=== PATIENT | male | born 1940 | race Caucasian/White ===

== ENCOUNTER → 2016-12-15 | Outpatient (CLI) | payer MEDICARE, OTHER | END | disposition home or self-care (01) | LOC: GMAB 14:01 | PROVIDERS: ATTEND Family Medicine | DX: C61 Malignant neoplasm of prostate (principal) ==

== ENCOUNTER → 2017-01-05 | Outpatient (CLI) | payer MEDICARE, OTHER | END | disposition home or self-care (01) | LOC: GMAB 10:24 | PROVIDERS: ATTEND Family Medicine | DX: Z12.5 Encounter for screening for malignant neoplasm of prostate (principal); I10 Essential (primary) hypertension | CPT/HCPCS: 84443; G0103 ==

== ENCOUNTER → 2017-04-13 | Outpatient (CLI) | payer MEDICARE, OTHER | LOC: GMAB 14:18 | PROVIDERS: ATTEND Family Medicine | DX: C61 Malignant neoplasm of prostate (principal) ==

== ENCOUNTER → 2017-10-05 | Outpatient (CLI) | payer MEDICARE, OTHER | END | disposition home or self-care (01) | LOC: GMAJ 17:15 | PROVIDERS: ATTEND Family Medicine | DX: C61 Malignant neoplasm of prostate (principal) ==

== ENCOUNTER → 2018-03-24 | Outpatient (CLI) | payer MEDICARE, OTHER | LOC: GMAB 10:42 | PROVIDERS: ATTEND Family Medicine | DX: C61 Malignant neoplasm of prostate (principal); I10 Essential (primary) hypertension ==

== ENCOUNTER → 2018-04-22 | Outpatient (CLI) | payer MEDICARE, OTHER | LOC: GMAE 10:19 | PROVIDERS: ATTEND Family Medicine | DX: D69.6 Thrombocytopenia, unspecified (principal) ==

== ENCOUNTER → 2019-04-11 | Outpatient (CLI) | payer MEDICARE, OTHER | LOC: GMAE 11:21 | PROVIDERS: ATTEND Family Medicine | DX: C61 Malignant neoplasm of prostate (principal); I10 Essential (primary) hypertension ==

== ENCOUNTER → 2019-05-20 | Outpatient (CLI) | payer MEDICARE, OTHER ==
--- NOTE | 2019-05-20 18:24 | CT ---
EXAM DESCRIPTION: Head CT with contrast CLINICAL HISTORY: SWELLING COMPARISON: None available TECHNIQUE: Postcontrast head CT was performed with routine protocol. Usual adult dose of nonionic iodinated IV contrast was administered intravenously. FINDINGS: Normal arteaga-white matter differentiation. Ventricles and sulci are normal for age. Postcontrast images show normal enhancement of intracranial vessels with normal arteaga-white matter differentiation. No high density hemorrhage, focal edema or shift of the midline. No sulcal effacement. Normal right orbital contents. 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 Basilar cisterns appear clear. Intact calvarium with no fracture or lytic lesion. Normal aeration of tympanic cavities and mastoid air cells. No fluid levels in the paranasal sinuses. Skull base appears intact. Symmetrical internal auditory canals. IMPRESSION: No acute intracranial pathologic process. This exam was performed according to our departmental dose-optimization program, which includes automated exposure control, adjustment of the mA and/or kV according to patient size and/or use of iterative reconstruction technique. Total DLP equals 967.47 mGycm. Electronically signed by: Manish Troy MD 05/20/2019 6:22 PM CDT
--- NOTE | 2019-05-23 11:30 | CT ---
EXAM DESCRIPTION: Soft Tissue Neck w/Contrast CLINICAL HISTORY: 79 years, Male, SWELLING COMPARISON: None. TECHNIQUE: CT of the neck is performed during IV administration of 75 mL of Optiray 320. MPR images are created and reviewed as well. There was suboptimal contrast bolus timing with majority of contrast likely within the delayed phase. This exam was performed according to our department optimization program which includes automated exposure control, adjustment of the mA and/or kv according to patient size and/or use of iterative reconstruction technique. FINDINGS: Partially visualized left eye prosthesis. No fluid or significant mucosal thickening in the visualized paranasal sinuses. The parotid glands, submandibular glands and thyroid gland are normal in appearance. Small bilateral intraparotid gland lymph nodes. The pharynx and larynx appear unremarkable. No focal mass or fluid collection is seen. Slight asymmetric increased prominence of the left premaxillary subcutaneous fat (when compared to the right). Scattered symmetric bilateral nonenlarged lymph nodes. No suspicious cervical lymphadenopathy. The lung apices are clear. Moderate multilevel cervical spine degenerative changes. No acute osseous abnormality. IMPRESSION: 1. Suboptimal contrast bolus timing. 2. Unremarkable CT neck soft tissue without suspicious mass, lymphadenopathy, or drainable fluid collection. Electronically signed by: Rafita Virgen DO 05/23/2019 11:29 AM CDT
== END ==
LOC: LAB.O 15:16
PROVIDERS: ATTEND Nurse Practitioner Family
DX: R22.0 Localized swelling, mass and lump, head (principal)

== ENCOUNTER 2019-10-02 08:53 | Emergency (ER) | payer MEDICARE, OTHER ==
[2019-10-02] MEDS ORDERED: methylPREDNISolone SODIUM SUC 125 MG/2 ML VIAL IM ONE (09:16)
[2019-10-02] MEDS ORDERED: KETOROLAC TROMETHAMINE INJ 30 MG/ML VIAL IM ONE (09:16)
[2019-10-02] MEDS ORDERED: cefTRIAXone SODIUM 1 GM VIAL IM ONE (09:16)
[2019-10-02] MEDS ORDERED: FAMOTIDINE 20 MG TAB PO SCH (09:30)
[2019-10-02] MEDS ORDERED: LIDOCAINE 1% 2 ML VIAL INJ ONE (09:42)
--- NOTE | 2019-10-02 09:43 | RAD ---
EXAM DESCRIPTION: Hand,Right 3 Views (accession [id number]), Wrist,Right 3 Views (accession [id number]) CLINICAL HISTORY: 79 years, Male, pain and swelling COMPARISON: None TECHNIQUE: Frontal, lateral, and oblique views of the Right hand and wrist was obtained. FINDINGS: Images of the Right hand and wrist demonstrate no displaced fracture or dislocation. The alignment of the carpus is intact (upper limits scapholunate interval). Mild osteoarthrosis with joint space narrowing, subchondral sclerosis and small marginal osteophyte formation affects the IP thumb CMC joints. Degenerative subcortical cystic changes at the intercarpal articulations. Atherosclerotic vascular calcifications are present. Osteopenia. IMPRESSION: 1. No displaced fracture or dislocation of the right hand or wrist. 2. Mild osteoarthrosis. 3. Mild osteopenia. Electronically signed by: Rafita Virgen DO 10/02/2019 9:42 AM [facility]
--- NOTE | 2019-10-02 09:44 | RAD ---
EXAM DESCRIPTION: Hand,Right 3 Views (accession [id number]), Wrist,Right 3 Views (accession [id number]) CLINICAL HISTORY: 79 years, Male, pain and swelling COMPARISON: None TECHNIQUE: Frontal, lateral, and oblique views of the Right hand and wrist was obtained. FINDINGS: Images of the Right hand and wrist demonstrate no displaced fracture or dislocation. The alignment of the carpus is intact (upper limits scapholunate interval). Mild osteoarthrosis with joint space narrowing, subchondral sclerosis and small marginal osteophyte formation affects the IP thumb CMC joints. Degenerative subcortical cystic changes at the intercarpal articulations. Atherosclerotic vascular calcifications are present. Osteopenia. IMPRESSION: 1. No displaced fracture or dislocation of the right hand or wrist. 2. Mild osteoarthrosis. 3. Mild osteopenia. Electronically signed by: Rafita Virgen DO 10/02/2019 9:42 AM [facility]
--- NOTE | 2019-10-02 09:58 | ED.PDOC ---
History of Present Illness - General Chief Complaint: General Stated Complaint: R hand is swollen Time Seen by Provider: 10/02/19 09:09 - History of Present Illness Allergies/Adverse Reactions: Allergies Horse-derived Products Allergy (Verified 10/02/19 09:11) Home Medications: Ambulatory Orders Allopurinol 300 mg PO DAILY 05/12/18 Losartan Potassium 100 mg PO DAILY 05/12/18 Hydrochlorothiazide 25 mg PO DAILY 10/02/19 Indomethacin 50 mg PO TID #30 cap 10/02/19 Sulfamethoxazole-Trimethoprim [Bactrim Ds 800-160 mg] 1 tab PO BID #20 tab 10/02/19 Past Medical History (General) - Patient Medical History Hx Seizures: No Hx Stroke: No Hx Asthma: No Hx of COPD: No Hx Congestive Heart Failure: No Hx Pacemaker: No Hx Hypertension: Yes Hx Thyroid Disease: No Hx Diabetes: No Hx Cancer: Yes - Skin, 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 Copy, Patient Portal Self Enrollment Diet: resume usual diet Referrals: TIFFANIE HERNANDEZ MD [Primary Care Provider] - 1-2 Weeks Prescriptions: Indomethacin 50 mg PO TID #30 cap Sulfamethoxazole-Trimethoprim [Bactrim Ds 800-160 mg] 1 tab PO BID #20 tab Home Medications: Ambulatory Orders Allopurinol 300 mg PO DAILY 05/12/18 Losartan Potassium 100 mg PO DAILY 05/12/18 Hydrochlorothiazide 25 mg PO DAILY 10/02/19 Indomethacin 50 mg PO TID #30 cap 10/02/19 Sulfamethoxazole-Trimethoprim [Bactrim Ds 800-160 mg] 1 tab PO BID #20 tab 10/02/19 Additional Instructions: Follow up PCP in 1-2 days
[2019-10-02 10:13] VITALS: TEMP 96.7
[2019-10-02 10:19] VITALS: BP 158/85; O2SAT 97
== END 2019-10-02 10:10 | disposition home or self-care (01) ==
LOC: ER 08:53
DX: L02.511 Cutaneous abscess of right hand (principal); I10 Essential (primary) hypertension; Z85.820 Personal history of malignant melanoma of skin; Z79.899 Other long term (current) drug therapy
CPT/HCPCS: 73110; 73130; J0696; J1885; J2930

== ENCOUNTER → 2019-10-11 | Outpatient (CLI) | payer MEDICARE, OTHER | LOC: GMAE 14:20 | PROVIDERS: ATTEND Family Medicine | DX: M79.18 Myalgia, other site (principal) ==

== ENCOUNTER → 2020-04-23 | Outpatient (CLI) | payer MEDICARE, OTHER | LOC: GMAE 11:20 | PROVIDERS: ATTEND Family Medicine | DX: C61 Malignant neoplasm of prostate (principal); I10 Essential (primary) hypertension ==